=== PATIENT | male | born 1995 | race African-American/Black ===

== ENCOUNTER 2022-04-11 16:23 | Emergency (ER) | payer OTHER ==
[~2022-04-11] VITALS: Ht 175.3 cm; Wt 143.2 kg
[2022-04-11 16:34] VITALS: BP 136/83
== END 2022-04-11 17:17 | disposition home or self-care (01) ==
LOC: EMS 16:23
DX: R51.9 Headache, unspecified (principal); Z98.890 Other specified postprocedural states
CPT/HCPCS: 99282; Z7502